=== PATIENT | female | born 1995 | race Two or more races ===

== ENCOUNTER 2018-08-11 00:24 | Emergency (ER) | payer MEDICAID ==
[~2018-08-11] VITALS: Ht 172.7 cm; Wt 99.8 kg
[2018-08-11 01:02] VITALS: BP 133/83
[2018-08-11] MEDS ORDERED: LIDOCAINE W/ EPINEPHRINE 2% INJ 20ML VIAL ONE (03:25)
[2018-08-11] MEDS ORDERED: LIDOCAINE 1% HCL (LOCAL ANESTH.) INJ 20ML MDV ONE (04:15)
[2018-08-11] MEDS ORDERED: BACITRACIN TOP OINT 1 UD PKG TOP ONE (04:30)
[2018-08-11] MEDS ORDERED: ACETAMINOPHEN/CODEINE#3 (300/30mg) TAB PO ONE (04:45)
[2018-08-11] MEDS ORDERED: cefTRIAXone SOD 1,000 MG VL IM ONE (04:45)
== END 2018-08-11 05:02 | disposition home or self-care (01) ==
LOC: EDBD 00:24 → ER 00:24
DX: S61.421A Laceration with foreign body of right hand, initial encounter (principal); W25.XXXA Contact with sharp glass, initial encounter; Y93.89 Activity, other specified; Y92.89 Other specified places as the place of occurrence of the external cause; Y99.8 Other external cause status
CPT/HCPCS: 12044; 73120; 73130; 96372; 99284; J0696; J2001; 12004